=== PATIENT | female | born 1990 | race African-American/Black ===

== ENCOUNTER 2017-12-15 06:15 | Inpatient (IN) ==
--- OUTSIDE RECORDS SUMMARY | 2017-12-15 06:26 | External Medical Summary | Continuity of Care Document ---
:1990 Author Organization [facility] Address [address] [place], [place] [id number] Phone Care Team Providers Name Role Phone [facility] Unavailable Unavailable Allergies, Adverse Reactions, Alerts Substance Reaction Severity Status latex Rash Unknown Active Medications Medication Instructions Dosage Effective Dates Status Comments (start - stop) metronidazole 500 mg take 1 tablet by 500 MG - Active tablet oral route every 12 hours Vitamin take 1 tablet by Not Available - Active tablet oral route every day Problems Condition Effective Dates (start - stop) Clinical Status Spotting complicating , first - trimester Anogenital (venereal) warts - Encounter for suprvsn of normal - , first trimester Less than 8 weeks gestation of - Anogenital (venereal) warts - 9 weeks gestation of - Spotting complicating , first - trimester 12 weeks gestation of - Placenta previa with hemorrhage, first - trimester Encounter for suprvsn of normal - , first trimester 12 weeks gestation of - Chronic Anemia Active Procedures Procedure Date Office/outpatient visit,est, mod Results Test Name Date and Time Measure Units Reference Range Abnormal Flag Comments Panel Description: CHLAMYDIA/N. GONORRHOEAE RNA, TMA CHLAMYDIA NOT DETECTED NOT DETECTED N TRACHOMATIS RNA, 10:16:00 TMA NEISSERIA NOT DETECTED NOT DETECTED N GONORRHOEAE RNA, 10:16:00 TMA [id number] SEE NOTE This test was 10:16:00 performed using the APTIMA COMBO2 Assay([employer] The analytical performance characteristics of this assay, when used to test SurePath specimens havebeen determined by [facility]. Test performed at [facility] [id number] [place] [address]Hjaowjtg: CHIRAG KOCH DO,MPH Advance Directives Directive Yes / No Effective Date File Name Unknown Encounters Encounter Practice Location Reason(s) Diagnoses Date Provider Care Description For Visit Team Members Avery Ascencio Placenta previa Aug- Sobbing In Womens with hemorrhage, [place] [place], first 7 700 [address] trimesterEncounter Medical [address], for suprvsn of [facility], normal , [place], [place], first [id number], weeks gestation of 120, [place], tel:[phone] [place], [phone], [place]. tel:[phone] Avery Ascencio Spotting May- Sobbing In Womens Ultrasound complicating [place], , first 7 700 [email or web address] weeks Medical 1522, gestation of [facility], [place], [place], [id number], 120, [place], tel:[phone] [place], [address], [place]. tel:[phone] Avery Ascencio May- Sobbing In Womens [place], 7 700 [address], [place], [place], [id number], 120, [place], tel:[phone] [place], [address], [place]. tel:[phone] Office/outpa Avery Ascencio generic Spotting May- Sobbing tient In Womens (chief complicating [place] visit,est, [facility] [place], complaint) , first 7 700 mod [address] trimester Medical [address]22, [place], [place], [id number], 120, [place], tel:[phone] [place], [address]80[address], [place]. tel:[phone] Avery Ascencio Anogenital Apr-3 Sobbing In Womens (venereal) [email or web address] [place] [place], weeks gestation of 7 700 [address], [place], [place], [id number], 120, [place], tel:+ [place], [phone], [place]. tel: [phone] [facility] Anogenital Sobbing In Womens (venereal) 7-201 [facility] for 7 700 [address] Box suprvsn of normal Medical 1522, , first [facility] [place], trimesterLess than [place], [place], 8 weeks gestation [id number], of 120, [place], tel:+ [place], [phone], [place]. tel: [phone] Family History Family Member Diagnosis Age At Onset Maternal Grandmother Diabetes Immunizations Vaccine Date Status Comments Unknown Payers Payer name Insurance type Covered alliance party ID Authorization(s) [facility] - [id number] Medicaid Social History Type Description Quantity Date Captured Alcohol Use Details No Caffeine Use Details Tobacco Use Status Never smoked tobacco Smoking Status Never smoker Vital Signs Date / Height Weight BMI Pulse Blood Temperature Respiratory Body Head BMI Time: Rate Pressure Rate Surface Circumference percentile Area 154.00 27.7 130/81 -2017 lbs 1 mm[Hg] 9:20 kg/m AM eter (2) Chief Complaint And Reason For Visit Unknown Chief Complaint And Reason For Visit Reason For Referral Reason For Referral Unknown Plan Of Care Date Type Action Status Appointment Claritza Navarro BOOKED Appointment Claritza Navarro BOOKED Future Order: Radiology Order Ultrasound < 14 wks ([id number]) Ordered Date Type Problem Goal Intervention Status Start Date Unknown. History Of Present Illness Encounter Date Complaint History Of Present Illness generic Pt is 11w 6da gestational age reports a 2 day histroy of spotting that is very light. Denies vagimnal discharge. Reports a mild occasional cramp but denies needing medicine or consistant pain. reports ahx of yeast infection prior pregnancies and no complications with this to date. See ob flow sheet for FHT and FH. Was also seen for F/U on TCA treatment. Functional Status Encounter Date Functional Assessment Cognitive Assessment Unknown Medications Administered Medication Instructions Dosage Effective Dates (start - stop) Status Comments Drug Treatment Unknown Instructions Date Instruction Additional Information HIV and other routine tests risk factors identified by history anticipated course of care nutrition and weight gain counseling, special diet toxoplasmosis precautions (cats / raw meat) sexual activity exercise indications for ultrasound influenza vaccine environmental / work hazards travel tobacco (ask, advise, assess, assist and arrange) alcohol illicit / recreational drugs use of any medications (including supplements, vitamins, herbs, OTC drugs) smoking counseling domestic violence seat belt use childbirth classes / hospital facilities hospital registration genetic testing new ob handbook risks
--- OUTSIDE RECORDS SUMMARY | 2017-12-15 06:26 | External Medical Summary | Continuity of Care Document ---
:1988 Author Organization [facility] Address [address] [place], [place] [id number] Phone Care Team Providers Name Role Phone [facility] Unavailable Unavailable Allergies, Adverse Reactions, Alerts Substance Reaction Severity Status latex Rash Unknown Active Medications Medication Instructions Dosage Effective Dates Status Comments (start - stop) Vitamin take 1 tablet by Not Available - Active tablet oral route every day Problems Condition Effective Dates (start - stop) Clinical Status Spotting complicating , first - trimester Spotting complicating , - second trimester Encounter for suprvsn of normal - , second trimester 19 weeks gestation of - Anogenital (venereal) warts - Encounter for suprvsn of normal - , first trimester Less than 8 weeks gestation of - Anogenital (venereal) warts - 9 weeks gestation of - Spotting complicating , first - trimester 12 weeks gestation of - Spotting complicating , - second trimester Placenta previa with hemorrhage, - second trimester 19 weeks gestation of - Spotting complicating , - second trimester Placenta previa with hemorrhage, - second trimester Encounter for suprvsn of normal - , second trimester 15 weeks gestation of - Placenta previa with hemorrhage, first - trimester Encounter for suprvsn of normal - , first trimester 12 weeks gestation of - Chronic Anemia Active Procedures Procedure Date OB Visit No Charge Results Test Name Date and Time Measure Units Reference Range Abnormal Flag Comments Unknown Advance Directives Directive Yes / No Effective Date File Name Unknown Encounters Encounter Practice Location Reason(s) Diagnoses Date Provider Care Description For Visit Team Members [facility] Spotting Oct-0 Sobbing In Womens complicating 5-201 [place], , second 7 700 [facility], for suprvsn of [facility], normal , [place], [place], second [id number], weeks gestation of 120, [place], tel:[phone] [place], [address], [place]. tel: [phone] [facility] Spotting Oct-0 Sobbing In Womens Ultrasound complicating 5-201 [place], , second 7 700 [address] trimesterPlacenta Medical 1522, previa with [facility], hemorrhage, second [place], [place], [email or web address] weeks [id number], gestation of 120, [place], tel:[phone], [address], [place]. tel: [phone] [facility] Spotting Sep-0 Sobbing In Womens complicating 8-201 [facility], , second 7 700 [address] Box trimesterPlacenta Medical 1522, previa with [facility], hemorrhage, second [facility], [place], trimesterEncounter [id number], for suprvsn of 120, [place] normal , Sonu, tel:[phone] second [email or web address] [place], [place] [address], [place]. tel: [phone] [facility] Placenta previa Aug-1 Sobbing In Womens with hemorrhage, 7-201 [place] [place], first 7 700 [facility]22, for suprvsn of [facility], normal , [place], [place], first [id number], weeks gestation of 120, [place], tel:[phone] [place], [address], [place]. tel: [phone] [facility] Spotting Aug-1 Sobbing In Womens Ultrasound complicating 7-201 [facility], , first 7 700 [address] [email or web address] weeks Medical 1522, gestation of [facility], [place], [place], [id number], 120, [place], tel:[phone] [place], [address], [place]. tel: [phone] [facility] Spotting May- Sobbing In Womens complicating [place] [place], , first 7 700 PO Box trimester Medical 1522, [place], [place], [id number], 120, [place] Asc[place], tel:[phone] [place], [address], [place]. tel: [phone] [facility] Anogenital Apr-3 Sobbing In Womens (venereal) warts9 [place] [place], weeks gestation of 7 700 [address] Medical [address], [place], [place], [id number], 120, [place] Asc[place], tel:[phone] [place], [address], [place]. tel: [phone] Avery Ascencio Anogenital Apr- Sobbing In Womens (venereal) [place] [place], wartsEncounter for 7 700 PO Box suprvsn of normal Medical 1522, , first [facility], trimesterLess than [place], [place], 8 weeks gestation [address] , of 120, [place] Asc[place], tel:[phone] [place], [address], [place]. tel: [phone] Family History Family Member Diagnosis Age At Onset Maternal Grandmother Diabetes Immunizations Vaccine Date Status Comments Unknown Payers Payer name Insurance type Covered republican ID Authorization(s) [facility] - [id number] Medicaid Social History Type Description Quantity Date Captured Alcohol Use Details No Caffeine Use Details Unknown Tobacco Use Status Unknown Smoking Status Never smoker Vital Signs Date / Height Weight BMI Pulse Blood Temperature Respiratory Body Head BMI Time: Rate Pressure Rate Surface Circumference percentile Area 158.90 28.6 118/79 -2017 lbs 0 mm[Hg] 3:07 kg/m PM eter (2) Chief Complaint And Reason For Visit Unknown Chief Complaint And Reason For Visit Reason For Referral Reason For Referral Unknown Plan Of Care Date Type Action Status Appointment Claritza Navarro BOOKED Future Order: Radiology Order Ultrasound < 14 wks ([id number]) Ordered Future Order: Radiology Order OB Detailed Complete Ultrasound Ordered ([id number]) Date Type Problem Goal Intervention Status Start Date Unknown. History Of Present Illness Encounter Date Complaint History Of Present Illness This patient has no known history of present illness Functional Status Encounter Date Functional Assessment Cognitive [...]
--- OUTSIDE RECORDS SUMMARY | 2017-12-15 06:26 | External Medical Summary | Continuity of Care Document ---
:1990 Author Organization [facility] [employer] [facility] Address [address] [place], [place] [phone] Phone Care Team Providers Name Role Phone [facility] Unavailable Unavailable Allergies, Adverse Reactions, Alerts Substance [...] Status Spotting complicating , first - trimester Placenta previa with hemorrhage, first - trimester Encounter for suprvsn of normal - , first trimester 12 weeks gestation of - Anogenital (venereal) warts - Encounter for suprvsn of normal - , first trimester Less than 8 weeks gestation of - Anogenital (venereal) warts - 9 weeks gestation of - Spotting complicating , first - trimester 12 weeks gestation of - Chronic Anemia Active Procedures Procedure Date OB Visit No Charge Results Test Name Date and Time Measure Units Reference Range Abnormal Flag Comments Unknown Advance Directives Directive Yes / No Effective Date File Name Unknown Encounters Encounter Practice Location Reason(s) Diagnoses Date Provider Care Description For Visit Team Members Avery Ascencio Placenta previa Sobbing In Womens with hemorrhage, 7-201 [facility], first 7 700 [address] [facility], for suprvsn of [facility], normal , [place], [place], first [email or web address] , weeks gestation of 120, [place] [facility], tel:[phone] [place], [address], [place]. tel: [phone] [facility] Spotting Aug-1 Sobbing In Womens Ultrasound complicating [place] [place], , first 7 700 [address] [email or web address] weeks Medical 1522, gestation of [facility], [place], [place], [id number], 120, [place], tel:[phone] [place], [address], [place]. tel: [phone] [facility] Aug-1 Sobbing In Womens [place] [place], 7 700 [address] Medical [address], [place], [place], [id number], 120, [place], tel:[phone] [place], [address], [place]. tel: [phone] [facility] Spotting Aug-1 Sobbing In Womens complicating [place] [place], , first 7 700 PO Box trimester Medical 1522, [place], [place], [address] [id number], 120, [place], tel:+3162 [place], [address], [place]. tel: [phone] [facility] Anogenital Fabio-3 Sobbing In Womens (venereal) warts9 [place] [place], weeks gestation of 7 700 [address] Medical [address], [place], [place], [id number], 120, [place], tel:+3162 [place], [address], [place]. tel: [phone] [facility] Anogenital Fabio-1 Sobbing In Womens (venereal) [place] [place], wartsEncounter for 7 700 PO Box suprvsn of normal Medical 1522, , first [facility], trimesterLess than [place], [place], 8 weeks gestation [address] , of 120, [place], tel:[phone] [place], [address], [place]. tel:[phone] Family History Family Member Diagnosis Age At Onset Maternal Grandmother Diabetes Immunizations Vaccine Date Status Comments Unknown Payers Payer name Insurance type Covered democrat ID Authorization(s) [facility] - [id number] Medicaid Social History Type Description Quantity Date Captured Alcohol Use Details No Caffeine Use Details Unknown Tobacco Use Status Unknown Smoking Status Never smoker Vital Signs Date / Height Weight BMI Pulse Blood Temperature Respiratory Body Head BMI Time: Rate Pressure Rate Surface Circumference percentile Area 27.7 1 mm[Hg] 2:46 kg/m PM eter (2) Chief Complaint And Reason For Visit Unknown Chief Complaint And Reason For Visit Reason For Referral Reason For Referral Unknown Plan Of Care Date Type Action Status Appointment Claritza Navarro BOOKED Appointment Claritza Navarro BOOKED Future Order: Radiology Order Ultrasound < 14 wks ([id number]) Ordered Date Type Problem Goal Intervention Status [...]
--- OUTSIDE RECORDS SUMMARY | 2017-12-15 06:26 | External Medical Summary | Continuity of Care Document ---
:1988 Author Organization [facility] Address [address] [place], [place] [phone] Phone Care Team Providers Name Role Phone [facility] Unavailable Unavailable Allergies, Adverse Reactions, Alerts Substance Reaction Severity Status latex Rash Unknown Active Medications Medication Instructions Dosage Effective Status Comments Dates (start - stop) metronidazole 500 take 1 tablet by 500 MG - Active mg tablet oral route every 12 hours Vitamin take 1 tablet by Not Available - Active tablet oral route every day fluconazole 150 mg take 1 tablet by 150 MG - No Longer tablet oral route once Active Problems Condition Effective Dates (start - stop) [...] - Chronic Anemia Active Procedures Procedure Date Unknown Results Test Name Date and Time Measure Units Reference Range Abnormal Flag Comments Unknown Advance Directives Directive Yes / No Effective Date File Name Unknown Encounters Encounter Practice Location Reason(s) Diagnoses Date Provider Care Description For Visit Team Members Avery Ascencio Placenta previa Sobbing In Womens with hemorrhage, 7-201 [place] [place], first 7 700 PO [facility] 1522, for suprvsn of [facility], normal , [place], [place], first [email or web address] , weeks gestation of 120, [place], tel:[phone] [place], [address], [place]. tel:[phone] [facility] Spotting Aug-1 Sobbing In Womens Ultrasound complicating [place] [place], , first 7 700 PO Box weeks Medical 1522, gestation of [facility], [place], [place], [id number], 120, [place], tel:[phone], [address], [place]. tel:[phone] [facility] Aug-1 Sobbing In Womens [place] [place], 7 700 [address] Medical [address], [place], [place], [id number], 120, [place], tel:[phone], [address], [place]. tel: [phone] [facility] Spotting Aug-1 Sobbing In Womens complicating [place] [place], , first 7 700 PO Box trimester Medical 1522, [place], [place], [address] [id number], 120, [place], tel:[phone], [address], [place]. tel: [phone] [facility] Anogenital Fabio-3 Sobbing In Womens (venereal) warts9 [place] [place], weeks gestation of 7 700 [address], [place], [place], [address] [id number], 120, [place], tel:[phone], [address], [place]. tel: [phone] [facility] Anogenital Fabio-1 Sobbing In Womens (venereal) [place] [place], wartsEncounter for 7 700 PO Box suprvsn of normal Medical 1522, , first [facility], trimesterLess than [place], [place], 8 weeks gestation [id number], of 120, [place], tel:+[phone] [place], [address], [place]. tel:[phone] Family History Family Member Diagnosis Age At Onset Maternal Grandmother Diabetes Immunizations Vaccine Date Status Comments Unknown Payers Payer name Insurance type Covered libertarian ID Authorization(s) [facility] - [id number] Medicaid Social History Type Description Quantity Date Captured Alcohol Use Details No Caffeine Use Details Unknown Tobacco Use Status Unknown Smoking Status Never smoker Vital Signs Date / Height Weight BMI Pulse Blood Temperature Respiratory Body Head BMI Time: Rate Pressure Rate Surface Circumference percentile Area Unknown Chief Complaint And Reason For Visit Unknown Chief Complaint And Reason For Visit Reason For Referral Reason For Referral Unknown Plan Of Care Date Type Action Status Appointment Claritza Navarro BOOKED Appointment Claritza Navarro BOOKED Future Order: Radiology Order Ultrasound < 14 wks ([id number]) Ordered Date Type Problem Goal Intervention Status [...]
--- OUTSIDE RECORDS SUMMARY | 2017-12-15 06:26 | External Medical Summary ---
:1988 Author Organization [employer] Care Team Providers Name Role Phone Bev Kaur Provider Role Unavailable Allergies, Adverse Reactions, Alerts Substance Reaction Event Type N.K.D.A. Info Not Available Non Drug Allergy Problems Problem Type Condition ICD-9 Code Onset Dates Condition Status Assessment Screening examination for V74.5 Active venereal disease Assessment Unspecified vaginitis and 616.10 Active vulvovaginitis Assessment Routine gynecological V72.31 Active examination Medications No Known Medications Procedures Procedure Coding System Code Date SPECIMEN HANDLING FEE CPT-4 81038 January 03, 2015 GENITAL CULTURE CPT-4 94283 January 03, 2015 OFFICE VISIT, BODY FITTER-LOW COMPLEXITY (30 MIN.) CPT-4 32417 January 03, 2015 Vital Signs Date/Time: January 03, 2015 Height 62 in Weight 161.4 lbs Temperature 98.9 F Blood Pressure Diastolic 62 mm Hg Blood Pressure Systolic 102 mm Hg Cardiac Monitoring Heart Rate 76 /min BMI 29.52 Index Respiratory Rate 18 /min Results No Known Results Summary Purpose [employer]Clinical[employer] Submission
--- OUTSIDE RECORDS SUMMARY | 2017-12-15 06:26 | External Medical Summary | Continuity of Care Document ---
:1988 Author Organization [facility] [employer] [place] Address [address] [place], [place] [phone] Phone Care Team Providers Name Role Phone [facility] Unavailable Unavailable Allergies, Adverse Reactions, Alerts Substance Reaction Severity Status latex Rash Unknown Active Medications Medication Instructions Dosage Effective Dates Status Comments (start - stop) Vitamin take 1 tablet by Not Available - Active tablet oral route every day fluconazole 150 take 1 tablet by 150 MG - No Longer mg tablet oral route once Active fluconazole 150 take 1 tablet by 150 MG - No Longer mg tablet oral route once Active Problems Condition Effective Dates (start - stop) Clinical Status Spotting complicating , first - trimester Anogenital (venereal) warts - Encounter for suprvsn of normal - , first trimester Less than 8 weeks gestation of - Anogenital (venereal) warts - 9 weeks gestation of - Chronic Anemia Active Procedures Procedure Date Unknown Results Test Name Date and Time Measure Units Reference Range Abnormal Flag Comments Unknown Advance Directives Directive Yes / No Effective Date File Name Unknown Encounters Encounter Practice Location Reason(s) Diagnoses Date Provider Care Description For Visit Team Members Avery Ascencio Spotlaure Sobbing In Womens complicating -2016 [facility], , first 700 [address], trimester Medical [place], [place], [place] [id number], Drive, [address], tel:[phone] [place], [address] [place], [address], [place]. tel:[phone] Avery Ascencio Anogenital Sobbing In Womens (venereal) -2016 [place]. mateo Ortiz9 weeks 700 [address], gestation of [place], [place], Center [id number], Drive, [place] [address], tel:[phone] Asc[facility], [address] [place], [facility], [place]. tel:[phone] Avery Ascencio Sobbing In Womens -2016 [place]. Debbi LOPES, 700 [address], [place], [place], Center [id number], Drive, [place] [address], tel:[phone] [facility], [address] [place], [address], [place]. tel:[phone] [facility] Anogenital Sobbing In Women (venereal) -2016 [place]. mateo OrtizEncounter 700 [address], for suprvsn of [place], [place], normal Center [id number], , first Drive, [place] trimesterLess [address], tel:[phone] than 8 weeks [place], [address] [place], [address], [place]. tel:[phone] Family History Family Member Diagnosis Age At Onset Maternal Grandmother Diabetes Immunizations Vaccine Date Status Comments Unknown Payers Payer name Insurance type Covered alliance party ID Authorization(s) [facility] - [id number] Medicaid Social History Type Description Quantity Date Captured Unknown Vital Signs Date / Height Weight BMI Pulse Blood Temperature Respiratory Body Head BMI Time: Rate Pressure Rate Surface Circumference percentile Area Unknown Chief Complaint And Reason For Visit Unknown Chief Complaint And Reason For Visit Reason For Referral Reason For Referral Unknown Plan Of Care Date Type Action Status Appointment Claritza Navarro BOOKED Appointment Claritza Navarro BOOKED Date Type Problem Goal Intervention Status Start [...]
--- OUTSIDE RECORDS SUMMARY | 2017-12-15 06:26 | External Medical Summary | Continuity of Care Document ---
:1990 Author Organization [facility] Address [address] [place], [place] [id number] Phone Care Team Providers Name Role Phone [facility] Unavailable Unavailable Allergies, Adverse Reactions, Alerts Substance Reaction Severity Status latex Rash Unknown Active Medications Medication Instructions Dosage Effective Dates Status Comments (start - stop) Vitamin take 1 tablet by Not Available - Active tablet oral route every day Problems Condition Effective Dates (start - stop) Clinical Status Spotting complicating , first - trimester Low Lying Placenta Nos Or W/out - Hemorrhage, Second Trimester Encounter for suprvsn of normal - , second trimester 23 weeks gestation of - Anogenital (venereal) warts [...] - Spotting complicating , - second trimester Encounter [...] Description For Visit Team Members [facility] Low Lying Placenta Nov-0 Sobbing In Womens Nos Or W/out 2-201 [place] [place], Hemorrhage, Second 7 700 [address] [facility], for suprvsn of [facility] [place], normal , [place], [place], second [email or web address] , weeks gestation of 120, [place], tel:[phone] [place], [id number], [place]. tel:[phone] [facility] Spotting Oct-0 Sobbing In Womens complicating 5-201 [place] [place], , second 7 700 PO Box trimesterEncounter Medical 1522, for suprvsn of [facility] [place] [facility], normal , [place], [place], second [id number], weeks gestation of 120, [place] [facility], tel:[phone] [place], [phone], [place]. tel:[phone] [facility] Spotting Oct-0 [facility] In [facility]omens Ultrasound complicating 5-201 [place] [place], , second 7 700 PO Box trimesterPlacenta Medical 1522, previa with [facility], hemorrhage, second [place], [place], weeks [id number], gestation of 120, [place] [facility], tel:[phone] [place], [phone], [place]. tel:[phone] [facility] Spotting Sep-0 Sobbing In Womens complicating 8-201 [place] [place], , second 7 700 PO Box trimesterPlacenta Medical 1522, previa with [facility], hemorrhage, second [place], [place], trimesterEncounter [id number], for suprvsn of 120, [place] normal , Sonu, tel:[phone] second [email or web address] [place], [place] [address], [place]. tel: [phone] [facility] Placenta previa Aug-1 Sobbing In Womens with hemorrhage, [place], first 7 700 PO Box trimesterEncounter Medical 1522, for suprvsn of [facility], normal , [place], [place], first [id number], weeks gestation of 120, [place], tel:[phone] [place], [address], [place]. tel: [phone] [facility] Spotting Aug-1 Sobbing In Womens Ultrasound complicating [place], , first 7 700 [address] [email or web address] weeks Medical 1522, gestation of [facility], [place], [place], [id number], 120, [place], tel:+[phone] [place], [address], [place]. tel: [phone] [facility] Spotting Aug-1 Sobbing In Womens complicating [place], , first 7 700 PO Box trimester Medical [address], [place], [place], [id number], 120, [place], tel:+[phone] [place], 114, [place]. tel: [phone] [facility] Anogenital Fabio-3 Sobbing In Womens (venereal) [email or web address] [place], weeks gestation of 7 700 [address], [place], [place], [id number], 120, [place], tel:[phone] [place], [address], [place]. tel: [phone] [facility] Anogenital Fabio-1 Sobbing In Womens (venereal) [facility], wartsEncounter for 7 700 PO Box suprvsn of normal Medical 1522, , first [facility], trimesterLess than [place], [place], 8 weeks gestation [id number], of 120, [place], tel:[phone] [place], [address], [place]. tel: [phone] Family History Family Member Diagnosis Age At Onset Maternal Grandmother Diabetes Immunizations Vaccine Date Status Comments Unknown Payers Payer name Insurance type Covered republican ID Authorization(s) [facility] - [id number] Medicaid Social History Type Description Quantity Date Captured Alcohol Use Details No Caffeine Use Details Unknown Tobacco Use Status Unknown Smoking Status Never smoker Vital Signs Date / Height Weight BMI Pulse Blood Temperature Respiratory Body Head BMI Time: Rate Pressure Rate Surface Circumference percentile Area 160.10 28.8 120/ lbs 1 mm[Hg] 3:52 kg/m PM eter (2) Chief Complaint And Reason For Visit Unknown Chief Complaint And Reason For Visit Reason For Referral Reason For Referral Unknown Plan Of Care Date Type Action Status Appointment Claritza Navarro BOOKED Appointment Claritza Navarro BOOKED Future Order: Radiology Order Ultrasound < 14 wks ([id number]) Ordered Future Order: Radiology Order OB Detailed Complete Ultrasound Ordered ([id number]) Date Type Problem Goal Intervention Status Start [...] / hospital facilities hospital registration genetic testing Fabio-17-2017 new ob handbook risks
--- OUTSIDE RECORDS SUMMARY | 2017-12-15 06:26 | External Medical Summary | Continuity of Care Document ---
:1990 Author Organization [facility] Address [address] [place], [place] [id number] Phone Care Team Providers Name Role Phone [facility] Unavailable Unavailable Allergies, Adverse Reactions, [...] No Longer tablet oral route once Active fluconazole 150 mg take 1 tablet by 150 MG - No Longer tablet oral route once Active Problems Condition Effective Dates (start - stop) Clinical Status Spotting complicating , first - trimester Anogenital (venereal) warts - 9 weeks gestation of - Anogenital (venereal) warts - Encounter for suprvsn of normal - , first trimester Less than 8 weeks gestation of - Spotting complicating , first - trimester 12 weeks gestation of - Placenta previa with hemorrhage, first - trimester Encounter for suprvsn of normal - , first trimester 12 weeks gestation of - Chronic Anemia Active Procedures Procedure Date Destruction, vulva lesion(s),simple OB Visit No Charge - [employer] Results Test Name Date and Time Measure Units Reference Range Abnormal Flag Comments Unknown Advance Directives Directive Yes / No Effective Date File Name Unknown Encounters Encounter Practice Location Reason(s) Diagnoses Date Provider Care Description For Visit Team Members [facility] Placenta previa Aug-1 Sobbing In Womens with hemorrhage, [place]. Debbi LOPES, first 7 700 [address] trimesterEncounter Medical 1522, for suprvsn of [facility], normal , [place], [place], first [id number], weeks gestation of 120, [place], tel:[phone] [place], [address], [place]. tel:[phone] [facility] Spotting Aug-1 Sobbing In Womens Ultrasound complicating [place]. Debbi LOPES, , first 7 700 [address] [email or web address] weeks Medical 1522, gestation of [facility], [place], [place], [id number], 120, [place], tel:[phone] [place], [address], [place]. tel: [phone] [facility] Aug-1 Sobbing In Womens [place]. Debbi LOPES, 7 700 [address], [place], [place], [id number], 120, [place], tel:[phone] [place], [address], [place]. tel:[phone] [facility] Spotting Aug-1 Sobbing In Womens complicating [place]. Debbi LOPES, , first 7 700 PO Box trimester Medical [address], [place], [place], [id number], 120, [place], tel:[phone] [place], [address], [place]. tel:[phone] [facility] Anogenital Fabio-3 Sobbing In Womens (venereal) [email or web address] [place]. Debbi LOPES, weeks gestation of 7 700 [address], [place], [place], [id number], 120, [place] Sonu, tel:[phone] [place], [address], [place]. tel:[phone] [facility] Anogenital Apr-1 Sobbing In Womens (venereal) [place]. Lillian Ortiz for 7 700 PO Box suprvsn of normal Medical 1522, , [facility], trimesterLess than [place], 8 weeks gestation [id number], of 120, [place] Sonu, tel:+[phone] [place], [phone], [place]. tel: [phone] Family History Family Member Diagnosis Age At Onset Maternal Grandmother Diabetes Immunizations Vaccine Date Status Comments Unknown Payers Payer name Insurance type Covered republican ID Authorization(s) [facility] - [id number] Medicaid Social History Type Description Quantity Date Captured Alcohol Use Details No Caffeine Use Details Unknown Tobacco Use Status Unknown Smoking Status Never smoker Vital Signs Date / Height Weight BMI Pulse Blood Temperature Respiratory Body Head BMI Time: Rate Pressure Rate Surface Circumference percentile Area 153.40 27.6 / lbs 1 mm[Hg] 9:43 kg/m AM eter (2) Chief Complaint And Reason For Visit Unknown Chief Complaint And Reason For Visit Reason For Referral Reason For Referral Unknown Plan Of Care Date Type Action Status Appointment Claritza Navarro BOOKED Future Order: Radiology Order Ultrasound < 14 wks ([id number]) Ordered Date Type Problem Goal Intervention Status [...]
--- OUTSIDE RECORDS SUMMARY | 2017-12-15 06:26 | External Medical Summary | Continuity of Care Document ---
:1990 Author Organization [facility] Address [address] [place], [place] [phone] Phone Care Team Providers Name Role Phone [facility] Unavailable Unavailable Allergies, Adverse Reactions, Alerts Substance Reaction Severity Status latex Rash Unknown Active Medications Medication Instructions Dosage Effective Dates Status Comments (start - stop) Vitamin take 1 tablet by Not Available - Active tablet oral route every day Problems Condition Effective Dates (start - stop) Clinical Status Spotting complicating , first - trimester Spotting complicating , - second trimester Placenta [...] - Chronic Anemia Active Procedures Procedure Date Detailed Compled OB Ultrasound, Single Fetus Results Test Name Date and Time Measure Units Reference Range Abnormal Flag Comments Unknown Advance Directives Directive Yes / No Effective Date File Name Unknown Encounters Encounter Practice Location Reason(s) Diagnoses Date Provider Care Description For Visit Team Members [facility] Spotting Oct-0 Sobbing In Womens complicating 5-201 [place], , second 7 700 PO [facility], for suprvsn of [facility] [place], normal , [place], [place], second [id number], weeks gestation of 120, [place], tel:[phone] [place], [address], [place]. tel: [phone] [facility] Spotting Oct-0 Sobbing In Womens Ultrasound complicating 5-201 [place]. Debbi LOPES, , second 7 700 PO Box trimesterPlacenta Medical 1522, previa with [facility] [place] [facility], hemorrhage, second [place], [place], [email or web address] weeks [id number], gestation of 120, [place], tel:[phone] [place], [address], [place]. tel: [phone] [facility] Spotting Sep-0 Sobbing In Womens complicating 8-201 [place], , second 7 700 PO Box trimesterPlacenta Medical 1522, previa with [facility], hemorrhage, second [place], [place], trimesterEncounter [id number], for suprvsn of 120, [place] normal , Sonu, tel:[phone] second [email or web address] [place], [place] [address], [place]. tel: [phone] [facility] Placenta previa Aug-1 Sobbing In Womens with hemorrhage, 7-201 [place] [place], first 7 700 [facility], for suprvsn of [facility] [place], normal , [place], [place], first [id number], weeks gestation of 120, [place], tel:[phone] [place], [address], [place]. tel: [phone] [facility] Spotting Aug-1 Sobbing In Womens Ultrasound complicating 7-201 [place] [place], , first 7 700 PO [address] [email or web address] weeks Medical 1522, gestation of [facility], [place], [place], [id number], 120, [place], tel:[phone] [place], [address], [place]. tel: [phone] [facility] Spotting Sob[place] In Womens complicating [place] [place], , first 7 700 PO Box trimester Medical [address], [place], [place], [id number], 120, [place], tel:[phone] [place], [address], [place]. tel: [phone] [facility] Anogenital Apr-3 Sobbing In Womens (venereal) warts9 [place] [place], weeks gestation of 7 700 [address], [place], [place], [id number], 120, [place], tel:[phone] [place], [address], [place]. tel: [phone] [facility] Anogenital Apr- Sobbing In Womens (venereal) [place] [place], wartsEncounter for 7 700 PO Box suprvsn of normal Medical [address], , first [facility], trimesterLess than [place], [place], 8 weeks gestation [id number], of 120, [place], tel:[phone] [place], [address], [place]. tel: [phone] Family History Family Member Diagnosis Age At Onset Maternal Grandmother Diabetes Immunizations Vaccine Date Status Comments Unknown Payers Payer name Insurance type Covered constitution party ID Authorization(s) [facility] - [id number] Medicaid Social History Type Description Quantity Date [...] Claritza Navarro BOOKED Future Order: Radiology Order OB Detailed Complete Ultrasound Ordered ([id number]) Future Order: Radiology Order Ultrasound < 14 wks ([id number]) Ordered Date Type Problem Goal Intervention Status [...]
--- OUTSIDE RECORDS SUMMARY | 2017-12-15 06:26 | External Medical Summary ---
:1990 Author Organization [employer] Care Team Providers Name Role Phone Carolin Lewis Provider Role Unavailable Allergies, Adverse Reactions, Alerts Substance Reaction Event Type N.K.D.A. Info Not Available Non Drug Allergy Problems Problem Type Condition Code Onset Dates Condition Status Assessment general medical exam Z00.00 Active Medications No Known Medications Procedures Procedure Coding System Code Date WELL ADULT, EST (18-39) CPT-4 42875 Jul 24, 2016 Vital Signs Date/Time: Jul 24, 2016 Temperature 99.8 F Height 62 in Weight 149.4 lbs Blood Pressure Diastolic 68 mm Hg Blood Pressure Systolic 100 mm Hg Cardiac Monitoring Heart Rate 85 /min BMI 27.32 Index Oximetry 98 % Respiratory Rate 16 /min Results No Known Results Summary Purpose [employer] Submission
[2017-12-15] MEDS ORDERED: OXYTOCIN DRIP 30 UNIT/500 ML ML IV PRN (06:49)
[2017-12-15] MEDS ORDERED: LIDOCAINE 1% (10mg/ml) 2mL INJ PF SDV ID PRN (06:49)
[2017-12-15] MEDS ORDERED: MAG-AL + SIM ORAL LIQUID 30ml PO PRN ×2 (06:49→17:55)
[2017-12-15] MEDS ORDERED: METHYLERGONOVINE 0.2 MG/ML INJECTION IM PRN (06:49)
[2017-12-15] MEDS ORDERED: CALCIUM CARBONATE Chewable 500mg TABLET PO PRN ×2 (06:49→17:55)
[2017-12-15] MEDS ORDERED: ACETAMINOPHEN 500 MG TABLET PO PRN ×2 (06:49→17:55)
[2017-12-15] MEDS ORDERED: CARBOPROST 250 MCG/ML INJECTION IM PRN (06:49)
[2017-12-15] MEDS: LR 1,000 ML IV PRN ×3 (07:00→15:19)
[2017-12-15 07:07] VITALS: BMI 29.5
[2017-12-15] MEDS: D5LR 1,000 ML IV PRN ×2 (07:15→15:20)
--- NOTE | 2017-12-15 07:56 | Anesthesia Preoperative Report ---
Anesthesia Preoperative Record - Date and Time Date: 12/15/17 Preoperative Diagnosis: Allergies/Adverse Reactions: Allergies Allergy/AdvReac Type Severity Reaction Status Date / Time latex Allergy Verified 12/15/17 07:49 - Vital Signs Vital Signs: Temperature 98.7 F 12/15/17 07:20 Pulse Rate 94 12/15/17 07:20 Respiratory Rate 16 12/15/17 07:20 Blood Pressure 122/72 12/15/17 07:20 Pulse Oximetry 98 12/15/17 07:20 Height and Weight: Height 1.63 m Weight 78.106 kg Body Mass Index 29.5 - Medications Inpatient Medications: Current Medications Acetaminophen (Tylenol) 500 - 1,000 mg PO Q4H PRN PRN Reason: Pain Al Hydroxide/Mg Hydroxide (Maalox Plus) 30 ml PO Q3H PRN PRN Reason: Indigestion Calcium Carbonate (Tums) 500 - 1,000 mg PO Q2H PRN PRN Reason: Indigestion Carboprost Tromethamine (Hemabate) 250 mcg IM O PRN PRN Reason: .Downtime Dextrose/Lactated Ringer's (Dextrose 5%-Lactated Ringers) 1,000 mls @ 125 mls/ hr IV .Q8H PRN PRN Reason: Labor Last Admin: 12/15/17 07:15 Dose: 125 mls/hr Lactated Ringer's (Lactated Ringers) 1,000 mls @ 999 mls/hr IV .Q1H1M PRN Last Admin: 12/15/17 07:00 Dose: 999 mls/hr Oxytocin (Pitocin Drip) 30 unit in 500 mls @ 2 mls/hr IV .Q24H PRN; Protocol PRN Reason: Induction/Augmentation Last Admin: 12/15/17 07:15 Dose: 2 mls/hr Lidocaine HCl (Xylocaine-Mpf 1% Vial) 0.2 mg ID O PRN PRN Reason: IV Start Methylergonovine Maleate (Methergine) 0.2 mg IM O PRN Misoprostol (Cytotec) 800 mcg MO ONCE PRN - Medical History Other History: Reports: Now - Surgical History Reproductive Surgery/Treatment: DENIES: Section - Social History Smoking Status: Former smoker - Pertinent Findings Laboratory: CBC and BMP 12/15/17 06:57 - Discussion Discussion: Discussed risks/options/alternatives of anesthesia and questions answered. Patient consents. Nursing pain assessment noted. Attestation Statement: Prior to the delivery of any anesthetic medication, I examined the patient, developed the plan, obtained the patient's consent and discussed the risk and benefits of the procedure with the patient/guardian.
--- NOTE | 2017-12-15 07:58 | Anesthesia Preoperative Report ---
Anesthesia Epidural/Spinal Rec - Date and Time Date: 12/15/17 Procedure: Labor Epidural Plan: Epidural - Vital Signs Vital Signs: Temperature 98.7 F 12/15/17 07:20 Pulse Rate 94 12/15/17 07:20 Respiratory Rate 16 12/15/17 07:20 Blood Pressure 122/72 12/15/17 07:20 Pulse Oximetry 98 12/15/17 07:20 NPO since: 00 /Para: P:2 Heart Rate: 153 Height and Weight: 5' 4" 172 lbs - Medictaions & Allergies Inpatient Medications: Current Medications Acetaminophen (Tylenol) 500 - 1,000 mg PO Q4H PRN PRN Reason: Pain Al Hydroxide/Mg Hydroxide (Maalox Plus) 30 ml PO Q3H PRN PRN Reason: Indigestion Calcium Carbonate (Tums) 500 - 1,000 mg PO Q2H PRN PRN Reason: Indigestion Carboprost Tromethamine (Hemabate) 250 mcg IM O PRN PRN Reason: .Downtime Dextrose/Lactated Ringer's (Dextrose 5%-Lactated Ringers) 1,000 mls @ 125 mls/ hr IV .Q8H PRN PRN Reason: Labor Last Admin: 12/15/17 07:15 Dose: 125 mls/hr Lactated Ringer's (Lactated Ringers) 1,000 mls @ 999 mls/hr IV .Q1H1M PRN Last Admin: 12/15/17 07:00 Dose: 999 mls/hr Oxytocin (Pitocin Drip) 30 unit in 500 mls @ 2 mls/hr IV .Q24H PRN; Protocol PRN Reason: Induction/Augmentation Last Admin: 12/15/17 07:15 Dose: 2 mls/hr Lidocaine HCl (Xylocaine-Mpf 1% Vial) 0.2 mg ID O PRN PRN Reason: IV Start Methylergonovine Maleate (Methergine) 0.2 mg IM O PRN Misoprostol (Cytotec) 800 mcg AR ONCE PRN Allergies/Adverse Reactions: Allergies Allergy/AdvReac Type Severity Reaction Status Date / Time latex Allergy Verified 12/15/17 07:49 - Home Medications Home Medications: Home Medications Medication Instructions Recorded Confirmed Type 19 Tablet 12/15/17 History - Medical History Gastrointestional: Reports: Gastroesophageal Reflux Disease Other History: Reports: Now - Surgical History Reproductive Surgery/Treatment: DENIES: Section Anesthesia Reactions: None Hx Family Anesthesia Reaction: No History of Motion Sickness: No - Social History Smoking Status: Former smoker Second Hand Exposure: No Substance Use Type: does not use Alcohol Intake Frequency: does not drink - Pertinent Findings Lab Data: CBC and BMP 12/15/17 06:57 - Physical Exam Respiratory Exam: lungs clear, bilateral breath sounds equal Cardiovascular Exam: regular rate and rhythm - Airway Assessment Mallampati Score: I TMD: 3 Fingerbreadths Neck Extension: good Overall Assessment: no airway concerns - ASA ASA Score: 2 - Discussion Discussion: Discussed risks/options/alternatives of anesthesia and questions answered. Patient consents. Nursing pain assessment noted. Attestation Statement: Prior to the delivery of any anesthetic medication, I examined the patient, developed the plan, obtained the patient's consent and discussed the risk and benefits of the procedure with the patient/guardian.
[2017-12-15] MEDS ORDERED: ROPIVACAINE 1% 10MG/ML INJ 200 MG, SUFentanil 50 MCG in NS 100 ML EPI PRN ×2 (14:23→14:39)
[2017-12-15] MEDS ORDERED: NALOXONE 0.4 MG/ML INJECTION IVP PRN ×2 (14:23→14:39)
[2017-12-15] MEDS ORDERED: ONDANSETRON 4 MG/2 ML INJECTION IVP PRN ×2 (14:23→14:39)
[2017-12-15] MEDS ORDERED: DiphenhydrAMINE 50 MG/ML INJECTION IVP PRN ×2 (14:23→14:39)
--- NOTE | 2017-12-15 17:54 | OB/GYN Procedure Note ---
Delivery date: 12/15/17 Intrapartal events: Precipitous Labor < 3 hours, Intolerance Induction method: per pitocin protocol Delivery augmentation: rupture of membranes Delivery monitor: external FHT, external uterine, internal FHT, internal uterine Route of delivery: vacuum extraction Indication for instrumentation: nonreassuring FHR tracing Episiotomy description: None Laceration description: Labial Delivery repair: chromic Anesthesia type: Epidural Disposition: floor - Baby 1 Infant gender: Female presentation: Vertex position: Vertex-by exam Placenta delivery description: Spontaneous cord vessel description: 3 Vessels at 1 minute: 8 at 5 minutes: 9
[2017-12-15] MEDS ORDERED: HYDROCORTISONE 2.5% CREAM 30gm RECTALLY PRN (17:55)
[2017-12-15] MEDS ORDERED: DiphenhydrAMINE 25 MG CAPSULE PO PRN (17:55)
[2017-12-15] MEDS: OXYTOCIN DRIP 30 UNIT/500 ML ML IV SCH ×2 (18:32)
[2017-12-15] MEDS: IBUPROFEN 800 MG TABLET PO PRN (20:57)
[2017-12-16] MEDS ORDERED: DiphenhydrAMINE 25 MG CAPSULE PO PRN (01:24)
[2017-12-16] MEDS ORDERED: ACETAMINOPHEN 500 MG TABLET PO PRN (01:24)
[2017-12-16] MEDS ORDERED: MAG-AL + SIM ORAL LIQUID 30ml PO PRN (01:24)
[2017-12-16] MEDS ORDERED: HYDROCORTISONE 2.5% CREAM 30gm RECTALLY PRN (01:24)
[2017-12-16] MEDS ORDERED: CALCIUM CARBONATE Chewable 500mg TABLET PO PRN (01:24)
[2017-12-16] MEDS: Oxycodone/Acetaminophen 5/325 1 TAB PO PRN ×6 (01:34→23:42)
[2017-12-16] MEDS: IBUPROFEN 800 MG TABLET PO PRN ×2 (07:06→16:22)
--- NOTE | 2017-12-16 08:46 | Labor and Delivery Note ---
DATE OF DELIVERY 12/15/2017 DELIVERY NOTE The patient was admitted to [facility] for induction of labor for logistics at 39 weeks gestational age who was a G3, P2 with her last delivery being remote in the past - greater than 5 years. Her was uncomplicated. She was admitted and noted to be 1.5 cm and started on Pitocin. The Pitocin was increased until she had three regular contractions in 10 minutes. She progressed to 3 cm and was making slow change to 5 cm. After 5 cm her water was broke and she rapidly progressed from 5 to 7 to 8 to complete. During this part an IUPC was placed along with a DFM secondary to intolerance of labor. She continued to progress quickly and when she was complete and +2 had a spontaneous deceleration down to the 80s without return for which she pushed twice and had a vacuum-assisted vaginal delivery. Vacuum-assisted vaginal delivery over intact perineum was performed. The patient had epidural anesthesia. There was a shoulder dystocia that was encountered after delivery of the head that was resolved with Harsh maneuver and the was delivered. The cord was clamped and cut and the infant was taken to the deputy sheriff k9 handler who was waiting. Two left labial first- degree lacerations were noted and repaired with 3-0 chromic. The placenta was delivered spontaneously. MEU was performed secondary to some blood clots that were passed and was noted to be normal. Estimated blood loss was 400 ml. There was 80 ml clear urine at the end of the procedure. The patient and infant were doing well. [facility]
[2017-12-16] MEDS ORDERED: DOCUSATE CALCIUM 240 MG CAPSULE PO SCH (09:00)
[2017-12-16] MEDS: DOCUSATE CALCIUM 240 MG CAPSULE PO SCH (11:11)
--- NOTE | 2017-12-16 12:21 | OB/GYN Progress Note ---
OB-PP Progress Note - General PPD1 Maternal Group B Strep: Negative Maternal blood type: B+ Maternal Rubella Status: Immune - Subjective Date: 12/16/17 Lochia: Moderate Pain: controlled Voiding: voiding Nausea or Vomiting Present: No - Objective Vital Signs: Last Vital Signs Temp 97.7 F 12/16/17 05:00 Pulse 79 12/16/17 05:00 Resp 16 12/16/17 05:00 BP 113/58 12/16/17 05:00 Pulse Ox 96 12/15/17 22:08 Urine Output: good General: alert and oriented Abdomen: fundus firm Extremities: non-tender Edema: none Laboratory: Laboratory Results - last 24 hr 12/15/17 12/15/17 18:15 18:15 Cord ABG pH 7.290 Cord ABG pCO2 53.8 Cord ABG pO2 23.0 Cord ABG HCO3 26.0 Cord ABG Total CO2 27 Cord ABG Base Excess -2.0 Cord ABG O2 Sat 33.0 Cord VBG pH 7.379 Cord VBG pCO2 39.5 Cord VBG pO2 23.0 Cord VBG HCO3 23.0 Cord VBG Total CO2 25 Cord VBG Base Excess -2.0 Cord VBG O2 Sat 39.0 - Assessment Assessment: SP, - Plan May want to go home later today.
[2017-12-16 23:47] VITALS: RESP 16
[2017-12-17] MEDS: Oxycodone/Acetaminophen 5/325 1 TAB PO PRN (06:17)
[2017-12-17] MEDS: IBUPROFEN 800 MG TABLET PO PRN (06:18)
[2017-12-17 06:44] VITALS: BP 134/78; PULSE 81; TEMP 98.1; O2SAT 97
[2017-12-17] MEDS ORDERED: SIMETHICONE 125 MG CAPSULE PO PRN ×2 (08:55→09:17)
--- NOTE | 2017-12-17 08:55 | OB/GYN Progress Note ---
OB-PP Progress Note - General PPD2 Maternal Group B Strep: Negative Maternal blood type: B+ Maternal Rubella Status: Immune - Subjective Date: 12/17/17 Lochia: Minimal Pain: controlled Voiding: voiding Nausea or Vomiting Present: No - Objective Vital Signs: Last Vital Signs Temp 98.1 F 12/17/17 06:25 Pulse 81 12/17/17 06:25 Resp 16 12/17/17 06:25 BP 134/78 12/17/17 06:25 Pulse Ox 97 12/17/17 06:25 Urine Output: good General: alert and oriented Respiratory: non-labored Abdomen: fundus firm Extremities: non-tender Edema: none - Assessment Assessment: SP, - Plan Plan: routine care, discharge home
[2017-12-17] MEDS: DOCUSATE CALCIUM 240 MG CAPSULE PO SCH (09:25)
[2017-12-17] MEDS ORDERED: SIMETHICONE 80 MG CHEWABLE TABLET PO PRN (09:30)
== END 2017-12-17 09:15 | disposition home or self-care (01) | DRG 775 ==
LOC: MC 06:15
PROVIDERS: ADMIT Obstetrics & Gynecology; ATTEND Obstetrics & Gynecology